=== PATIENT | male | born 1955 | race African-American/Black ===

== ENCOUNTER → 2024-04-05 15:39 | Outpatient (REF) | payer OTHER, SELFPAY | LOC: RCS 15:39 | PROVIDERS: ATTENDING PHYSICIAN Internal Medicine; FAMILY PHYSICIAN Family Medicine | DX: I10 Essential (primary) hypertension (principal); I35.1 Nonrheumatic aortic (valve) insufficiency; I45.10 Unspecified right bundle-branch block | CPT/HCPCS: 93306; 93356 ==